=== PATIENT | female | born 1985 | race Caucasian/White ===

== ENCOUNTER 2019-09-08 11:06 | Emergency (ER) | payer BC ==
[~2019-09-08] VITALS: Ht 149.9 cm; Wt 46.3 kg
--- NOTE | 2019-09-08 11:11 | NUR ---
Patient to ER bed H1 to gown for evaluation. Side rails up.
[2019-09-08 11:12] VITALS: BP_SYST 124
[2019-09-08] MEDS ORDERED: LACOSAMIDE 100 MG TABLET PO ONE (11:15)
[2019-09-08] MEDS ORDERED: levETIRAcetam 1,000 MG in NS 100 ML IV ONE (11:15)
[2019-09-08] MEDS ORDERED: NACL 0.9% 1,000 ML IV ONE ×2 (11:15→13:30)
[2019-09-08] MEDS ORDERED: LamoTRIgine 100 MG TABLET PO ONE (11:15)
--- NOTE | 2019-09-08 11:30 | NUR ---
Pt brought by family member, Alert x1, pt presents to ER after tonic-clonic seizure at home per family , per family seizure lasted longer than before, pt VSS, respiraions even and unlabored, no seizures noted at this time.
[2019-09-08 11:33] LABS: BASOPHILS # (AUTO) 0.1 K/uL (0.0-0.2); BASOPHILS % (AUTO) 0.4 % (0.0-2.0); HEMATOCRIT 40.6 % (36-48); HEMOGLOBIN 13.9 g/dL (12.0-16.0); LYMPHOCYTES # (AUTO) 1.1 K/uL (1.0-5.5); LYMPHOCYTES % (AUTO) 7.6 % (20.5-51.5); MEAN CORPUSCULAR HEMOGLOBIN 31 pg (27-31); MEAN CORPUSCULAR HGB CONC 34 % (32-36); MEAN CORPUSCULAR VOLUME 90 fL (79.0-98.0); MONOCYTES # (AUTO) 0.7 K/uL (0.0-1.0); MONOCYTES % (AUTO) 4.5 % (1.7-9.3); NEUTROPHILS # (AUTO) 12.5 K/uL (1.8-7.7); NEUTROPHILS % (AUTO) 87.5 % (40.0-70.0); PLATELET COUNT (AUTO) 374 K/uL (130-430); RED BLOOD CELL COUNT(AUTO) 4.53 MIL/uL (4.2-6.2); RED CELL DISTRIBUTION WIDTH 12.6 % (9.0-15.0); WHITE BLOOD COUNT (AUTO) 14.3 K/uL (4.8-10.8)
--- NOTE | 2019-09-08 11:40 | NUR ---
Campos Pedro at bedside examining patient
[2019-09-08 11:42] LABS: ANION GAP 14 (5-15); CALCIUM 9.4 mg/dL (8.4-11.0); CHLORIDE 94 mmol/L (98-107); CREATININE 1.18 mg/dL (0.55-1.30); GLUCOSE 175 mg/dL (70-99); POTASSIUM 3.8 mmol/L (3.5-5.1); SODIUM SERUM 133 mmol/L (136-145); UREA NITROGEN, BLOOD 18 mg/dL (8-21)
[2019-09-08 11:46] LABS: GFR AFRICAN AMERICAN 67 mL/min (>90)
[2019-09-08 11:52] LABS: ALANINE AMINOTRANSFERASE 34 U/L (12-78); ALBUMIN 4.2 g/dL (3.4-4.8); ASPARTATE AMINOTRANSFERASE 30 U/L (10-37); TOTAL BILIRUBIN 0.4 mg/dL (0.0-1.0)
[2019-09-08] MEDS ORDERED: LEVE500T9 PO (12:09)
[2019-09-08] MEDS ORDERED: LACO100T2 PO ×2 (12:09)
[2019-09-08] MEDS ORDERED: LEVO88TA2 PO (12:09)
[2019-09-08] MEDS ORDERED: LAM100 PO ×2 (12:09)
--- NOTE | 2019-09-08 12:10 | NUR ---
Medication reconciliation completed with information provided by RX bottles brought in from home. Any prior medication reconciliation on file was reviewed and corrected.
--- NOTE | 2019-09-08 13:45 | NUR ---
Pt's family at bedside since patient non-verbal, MD notified,
[2019-09-08 13:57] LABS: BILIRUBIN,URINE NEGATIVE (NEGATIVE); BLOOD, URINE NEGATIVE (NEGATIVE); CLARITY/URINE CLEAR (CLEAR); COLOR,URINE YELLOW (YELLOW); GLUCOSE,URINE 1+ (NEGATIVE); KETONES,URINE NEGATIVE (NEGATIVE); LEUKOCYTE ESTERASE ,URINE NEGATIVE (NEGATIVE); NITRITE, URINE NEGATIVE (NEGATIVE); PROTEIN URINE NEGATIVE (NEGATIVE); UROBILINOGEN,URINE 0.2 (0.2-1.0)
[2019-09-08 15:08] VITALS: BP_SYST 124
--- NOTE | 2019-09-08 15:09 | NUR ---
Patient and pt's mother given written and verbal discharge instructions and verbalizes understanding. ER MD discussed with patient the results and treatment provided. Patient in stable condition. ID arm band removed. IV catheter removed intact and dressing applied, no active bleeding. No Rx given. Patient and pt's mother educated on pain management and to follow up with PMD. Pain Scale 0/10. Opportunity for questions provided and answered. Medication side effect fact sheet provided.
== END 2019-09-08 15:08 | disposition home or self-care (01) ==
LOC: SED 11:06
DX: R56.9 Unspecified convulsions (principal); D72.829 Elevated white blood cell count, unspecified; E87.2 Acidosis; Z79.899 Other long term (current) drug therapy
CPT/HCPCS: 36415; 70450; 71045; 80053; 81003; 83605; 84484; 85025; 87040; 87086; 93005; 96365; 99285; J1953; J7030